=== PATIENT | female | born 1945 | race Two or more races ===

== ENCOUNTER → 2024-07-18 | Outpatient (CLI) | payer MEDICARE, MEDICAID, SELFPAY ==
--- NOTE | 2024-07-18 10:15 | XR_ITS ---
Examination: Breast ultrasound, unilateral, right complete Date and time of exam: July 18, 2024 0951 hrs. Indications: Right breast sonogram December 15, 2023 1:00 nodule 4 mm an o'clock nodule 7 mm 10:00 nodule 8 mm retroareolar nodule 6 mm Technique: Real-time osorio scale ultrasonographic imaging performed right breast including all 4 quadrants as well as nipple retroareolar and axillary region. Findings: 12:00 circumscribed mass 8 x 7 mm 2:00 circumscribed mass 10 x 13 mm. 2:00 circumscribed mass 4 x 7 mm. Retroareolar circumscribed mass 5 x 6 mm Retroareolar circumscribed mass 8 x 6 mm Impression: BI-RADS Category 3: Probably benign findings Recommend 1 additional 6 month right breast sonogram follow-up to document stability of multiple solid nodules described above
== END | disposition home or self-care (01) ==
PROVIDERS: PCP Physician Assistant; Referring Provider Nurse Practitioner Primary Care; Visit Provider Nurse Practitioner Primary Care
DX: N63.41 Unspecified lump in right breast, subareolar (principal); N63.15 Unspecified lump in the right breast, overlapping quadrants; N63.12 Unspecified lump in the right breast, upper inner quadrant
CPT/HCPCS: 76641

== ENCOUNTER → 2024-11-19 | Outpatient (CLI) | payer MEDICARE, MEDICAID, SELFPAY ==
[2024-11-19 09:11] LABS: Basophils # (Auto) 0.1 Thou/mm3 (0.0-0.2); Basophils % (Auto) 1 % (0-2.5); Eosinophils # (Auto) 0.1 Thou/mm3 (0.0-0.5); Eosinophils % (Auto) 1 % (0-10); Hematocrit 39.0 % (36.0-46.0); Hemoglobin 12.7 g/dL (12.0-16.0); Immature Granulocytes Auto 0.01 Thou/mm3 (0.00-0.00); Lymphocytes # (Auto) 1.7 Thou/mm3 (1.0-4.8); Lymphocytes % (Auto) 28 % (10-50); Mean Corpuscular HGB Conc 32.6 g/dl (31.0-37.0); Mean Corpuscular Hemoglobin 28.5 pg (25.0-35.0); Mean Corpuscular Volume 87 fL (80-100); Monocytes # (Auto) 0.4 Thou/mm3 (0.0-0.8); Monocytes % (Auto) 7 % (0-12); Neutrophils # (Auto) 3.9 Thou/mm3 (1.8-7.7); Neutrophils % (Auto) 63 % (37-80); Nucleated Red Blood Cell # 0.00 Thou/mm3 (0.00-0.00); Nucleated Red Blood Cell % 0 /100 WBC (0); Platelet Count 288 Thou/mm3 (140-440); RDW Standard Deviation 40.9 fL (36.4-46.3); Red Blood Count 4.46 Miln/mm3 (4.00-5.20); White Blood Count 6.1 Thou/mm3 (3.6-11.0)
[2024-11-19 09:31] LABS: Glucose Estimated Average 114 mg/dL (80-131); Hemoglobin A1C 5.6 % Hgb (4.8-6.0)
[2024-11-19 09:37] LABS: B-Type Natriuretic Peptide 73 pg/mL (0-100)
[2024-11-19 09:41] LABS: Alanine Aminotransferase 10 U/L (10-49); Albumin, Serum 4.5 gm/dL (3.4-4.8); Alkaline Phosphatase 76 U/L (46-116); Anion Gap 9 (7-16); Aspartate Amino Transferase 18 U/L (0-34); BUN/Creatinine Ratio 20 Ratio (12-20); Bilirubin,Direct 0.1 mg/dL (0.0-0.3); Bilirubin,Total 0.5 mg/dL (0.3-1.2); Blood Urea Nitrogen 14 mg/dL (9-23); Calcium 9.3 mg/dL (8.3-10.6); Carbon Dioxide 26.1 mMol/L (20.0-31.0); Cardiac Risk Estimate 2.2 RATIO (3.7-5.6); Chloride 107 mMol/L (98-107); Cholesterol 175 mg/dL (132-200); Creatinine (Component) 0.7 mg/dL (0.6-1.3); Free T4 (Free Thyroxine) 1.30 ng/dL (0.89-1.76); Glucose 107 mg/dL (74-106); HDL Cholesterol 80 mg/dL (40-60); LDL Cholesterol,Calculated 77 mg/dL (0-130); Osmolality,Calculated 283 (275-295); Potassium 4.1 mMol/L (3.4-5.1); Sodium 142 mMol/L (136-145); Thyroid Stimulating Hormone 1.44 uIU/mL (0.55-4.78); Total Protein 7.7 gm/dL (5.7-8.2); Triglycerides 91 mg/dL (30-150); eGFR > 60 See Note
== END | disposition home or self-care (01) ==
LOC: COPL 08:17
PROVIDERS: PCP Nurse Practitioner Primary Care; Referring Provider Internal Medicine Cardiovascular Disease; Visit Provider Internal Medicine Cardiovascular Disease
DX: I11.0 Hypertensive heart disease with heart failure (principal); I50.9 Heart failure, unspecified; E78.5 Hyperlipidemia, unspecified; E13.9 Other specified diabetes mellitus without complications
CPT/HCPCS: 36415; 80048; 80061; 80076; 83036; 83880; 84439; 84443; 85025

== ENCOUNTER → 2025-02-05 | Outpatient (CLI) | payer MEDICARE, MEDICAID, SELFPAY ==
--- NOTE | 2025-02-05 08:45 | XR_ITS ---
Examination: Screening digital mammography, bilateral Computer aided detection 3-D breast Tomosynthesis, bilateral Date and time of exam: February 05, 2025, 0800 hours, compared to mammograms dating to March 12, 2015 Indication: Screening Technique: Nonmagnified MLO, CC views of the breasts to been obtained, reconstructed from 3-D Tomosynthesis images. R2 computer aided detection program utilized for evaluation of suspicious masses and/or abnormal calcifications. 3-D Tomosynthesis images obtained. Findings: The breasts are heterogeneously dense, which may obscure small masses 12 mm nodule partially indistinct margins 12:00 position right breast anterior depth 10 mm nodule, partially indistinct margins inner upper right breast Impression: BI-RADS Category 0: Incomplete: Need additional imaging evaluation Recommend follow-up spot tomographic views of 12 mm nodule 12:00 position right breast, 10 mm nodule inner upper right breast as well as bilateral breast sonography to complete the workup
== END | disposition home or self-care (01) ==
LOC: CDIM 07:53
PROVIDERS: Referring Provider Nurse Practitioner Primary Care; Visit Provider Nurse Practitioner Primary Care
DX: Z12.31 Encounter for screening mammogram for malignant neoplasm of breast (principal); N63.15 Unspecified lump in the right breast, overlapping quadrants; N63.12 Unspecified lump in the right breast, upper inner quadrant; R92.8 Other abnormal and inconclusive findings on diagnostic imaging of breast
CPT/HCPCS: 77063; 77067

== ENCOUNTER → 2025-02-08 | Outpatient (CLI) | payer MEDICARE, MEDICAID, SELFPAY ==
--- NOTE | 2025-02-08 11:15 | XR_ITS ---
Examination: Breast ultrasound, unilateral, right Date and time of exam: February 08, 2025, 11:00 AM INDICATIONS: Mammogram 02/05/2025 12 mm nodule indistinct margins 12:00 position right breast, 10 mm nodule partially indistinct margins inner upper right breast Technique: Real-time osorio scale ultrasonographic imaging performed right breast including all 4 quadrants as well as nipple retroareolar and axillary region. Findings: 12:00 nodule lobular margins 7 x 7 mm 2:00 nodule circumscribed 12 x 13 mm 2:00 nodule lobular margins 7 x 5 mm 3:00 nodule circumscribed 6 x 4 mm Retroareolar nodule circumscribed 6 x 6 mm IMPRESSION: BI-RADS Category 3: Probably benign findings Recommend 1 additional 6 month right breast sonogram follow-up to document stability of multiple solid nodules described above
== END | disposition home or self-care (01) ==
PROVIDERS: PCP Physician Assistant; Referring Provider Nurse Practitioner Primary Care; Visit Provider Nurse Practitioner Primary Care
DX: N63.15 Unspecified lump in the right breast, overlapping quadrants (principal); N63.12 Unspecified lump in the right breast, upper inner quadrant; N63.41 Unspecified lump in right breast, subareolar
CPT/HCPCS: 76641